=== PATIENT | male | born 1960 | race African-American/Black ===

== ENCOUNTER 2019-05-14 01:58 | Emergency (ER) | payer MEDICAID ==
[~2019-05-14] VITALS: Ht 188 cm; Wt 108.9 kg
[2019-05-14 02:05] VITALS: BP 140/90
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
[2019-05-14] MEDS ORDERED: HYDROcodone/Acetamin 5/325 tab ORAL ONE (02:15)
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
[2019-05-14] MEDS ORDERED: IBUPROFEN600 MG ORAL (04:00)
[2019-05-14] MEDS ORDERED: HYDROCODON-ACE1 EA15 ORAL (04:00)
== END 2019-05-14 04:07 | disposition home or self-care (01) ==
LOC: EDBD 01:58 → EMR 02:16
DX: S16.1XXA Strain of muscle, fascia and tendon at neck level, initial encounter (principal); S39.012A Strain of muscle, fascia and tendon of lower back, initial encounter; I10 Essential (primary) hypertension; V43.52XA Car driver injured in collision with other type car in traffic accident, initial encounter; Y92.410 Unspecified street and highway as the place of occurrence of the external cause
CPT/HCPCS: 12011; 70450; 72125; 72131; Z7502; 99284